=== PATIENT | female | born 1970 | race Caucasian/White ===

== ENCOUNTER → 2016-10-19 | Outpatient (CLI) | payer BC ==
[~2016-10-19] MED LIST: ACET-1311 PO; IBUP-1050 PO; OXYC5TAB PO; PRENTAB26 PO
[2016-10-19 14:21] LABS: THYROID STIMULATING HORMONE 0.024 uIu/ml (0.300-4.500)
== END | disposition home or self-care (01) ==
LOC: C.LABBC 10:07
PROVIDERS: ATTEND Internal Medicine Endocrinology, Diabetes & Metabolism
DX: E03.9 Hypothyroidism, unspecified (principal)

== ENCOUNTER → 2017-03-03 | Outpatient (CLI) | payer BC ==
--- NOTE | 2017-03-03 08:50 | DIAGNOSTIC IMAGING REPORT ---
ABDOMEN COMPLETE (US) CLINICAL HISTORY: EPIGASTRIC PAIN COMPARISON STUDY: No previous studies for comparison. FINDINGS: The pancreas appears sonographically normal. The spleen measures 10.5 cm and appears normal. The abdominal aorta appears normal. The gallbladder appears normal. The right kidney measures 9.6 cm in length. The left kidney measures 10.5 cm in length. No renal masses are visualized. There is no hydronephrosis. The liver appears normal. There is no ductal dilatation. The common bile duct measures 2 mm. IMPRESSION: Normal study Electronically signed by: Narinder Quintero M.D. 03/03/2017 8:49 AM Dictated Date/Time: 03/03/2017 8:47 AM
== END | disposition home or self-care (01) ==
LOC: C.ULTRBC 08:05
PROVIDERS: ATTEND Family Medicine
DX: R10.13 Epigastric pain (principal)

== ENCOUNTER → 2017-04-15 | Outpatient (CLI) | payer BC ==
[2017-04-15 18:14] LABS: THYROID STIMULATING HORMONE 0.096 uIu/ml (0.300-4.500)
== END | disposition home or self-care (01) ==
LOC: C.LAB1850 16:39
PROVIDERS: ATTEND Physician Assistant
DX: E03.9 Hypothyroidism, unspecified (principal)

== ENCOUNTER → 2017-11-11 | Outpatient (CLI) | payer OTHER ==
--- NOTE | 2017-11-14 15:51 | MAMMOGRAPHY REPORT ---
BILATERAL DIGITAL SCREENING MAMMOGRAM TOMOSYNTHESIS WITH CAD: 11/11/2017 TECHNIQUE: Breast tomosynthesis in addition to standard 2D mammography was performed. Current study was also evaluated with a Computer Aided Detection (CAD) system. COMPARISON: Comparison is made to exams dated: 10/13/2015 mammogram, 10/08/2014 mammogram, and 2012 mammogram - [facility]. BREAST COMPOSITION: The tissue of both breasts is heterogeneously dense, which may obscure small mas ses. FINDINGS: No suspicious masses, calcifications, or areas of architectural distortion are noted in ei ther breast. There has been no significant interval change compared to prior exams. IMPRESSION: ACR BI-RADS CATEGORY 1: NEGATIVE There is no mammographic evidence of malignancy. A 1 year screening mammogram is recommended. The pa tient will receive written notification of the results. Approximately 10% of breast cancers are not detected with mammography. A negative mammographic report should not delay biopsy if a clinically suggestive mass is present. Loretta Alvarez M.D. ah/:11/11/2017 15:32:24 Deblocker: Magali DANIELSON([place])(M), [facility] letter sent: Normal 1/2 BI-RADS Code: ACR BI-RADS Category 1: Negative
== END | disposition home or self-care (01) ==
LOC: C.MAMM 14:56
PROVIDERS: ATTEND Obstetrics & Gynecology
DX: Z12.31 Encounter for screening mammogram for malignant neoplasm of breast (principal)